=== PATIENT | female | born 1985 | race Caucasian/White ===

== ENCOUNTER 2023-05-27 10:18 | Emergency (ER) | payer SELFPAY ==
[2023-05-27] MEDS ORDERED: KETOROLAC 30 MG/ML INJ ONE (11:09)
[2023-05-27] MEDS ORDERED: ONDANSETRON 4 MG/2 ML VIAL ONE (11:09)
[2023-05-27] MEDS ORDERED: dexAMETHasone 10 MG/ML VIAL ONE (11:09)
[2023-05-27] MEDS ORDERED: MORPHINE 4 MG/ML SYR ONE (11:10)
[2023-05-27] MEDS ORDERED: DIAZEPAM 5 MG TABLET ONE (11:10)
[2023-05-27] MEDS ORDERED: NA CHLORIDE 0.9% 1,000 ML ONE (11:10)
[2023-05-27 11:35] LABS: Absolute Basophils 0.1 K/uL (0-0.5); Absolute Eosinophils 0.1 K/uL (0-0.5); Absolute Lymphocytes (CBC) 2.2 K/uL (0.7-4.9); Absolute Monocytes 0.6 K/uL (0.1-1.3); Absolute Neutrophil 6.1 K/uL (1.8-8.0); Basophils % 0.7 % (0-1.3); Eosinophils % 1.1 % (0-4.4); Hematocrit 42.7 % (36.0-45.0); Hemoglobin 14.5 g/dL (12.0-15.0); Lymphocytes % 24.2 % (15.3-44.8); MCH 32.5 pg (27.0-35.0); MCV 95.6 fL (80-100); MPV 8.4 fL (7.6-11.3); Monocytes % 6.1 % (3.3-12.3); Neutrophils % 67.9 % (41.7-73.7); Platelets 324 thou/uL (152-406); RBC Red Blood Cell Count 4.47 M/uL (3.86-4.86); Red Cell Distribution Width 13.1 % (12.1-15.2)
[2023-05-27 11:48] LABS: Urine Bacteria <20 /HPF (<20); Urine Bilirubin NEGATIVE (Negative); Urine Blood Negative (Negative); Urine Clarity Extremely Turbid (Clear); Urine Color Yellow (Yellow); Urine Culture Reflex Order NOT NEEDED; Urine Glucose NEGATIVE (Negative); Urine Ketones NEGATIVE (Negative); Urine Microscopic Reflex YN ORDER UMIC; Urine Mucus Slight /HPF (None Seen); Urine Nitrite NEGATIVE (Negative); Urine Protein NEGATIVE (Negative); Urine Urobilinogen Normal (Normal); Urine WBC <5 /HPF (<5)
--- NOTE | 2023-05-27 12:02 | RAD REPORT ---
EXAM DESCRIPTION: CT - Spine Lumbar Wo Con - 05/27/2023 11:49 am CLINICAL HISTORY: Radiculopathy. PAIN COMPARISON: <Comparisons> TECHNIQUE: Axial noncontrast CT imaging of the lumbar spine was performed with coronal and sagittal re-formatted images. All CT scans are performed using dose optimization technique as appropriate and may include automated exposure control or mA/KV adjustment according to patient size. FINDINGS: No acute lumbar spine fracture seen. No aggressive marrow pattern or malalignment. Paraspinal tissues are normal in thickness. No paraspinal abscess or hematoma seen. Prominent posterior disc bulging is present at L4-5 and L5-S1. There may be disc herniation at L4-5 t owards the left. IMPRESSION: No acute finding is seen. Mild lower lumbar degenerative changes detailed, with possible disc herniation L4-5 towards the left.
--- NOTE | 2023-05-27 12:04 | ER ---
Nurse's Notes [facility] Name: Rose Jacinto Age: 38 yrs Sex: Female : 1985 Arrival Date: 05/27/2023 Time: 10:18 Bed 12 Private MD: Diagnosis: Sciatica, left side;Sciatica;Low back pain;UTI/ Urinary tract infection, site not specified;Radiculopathy, lumbar region;Intervertebral disc disorders with radiculopathy, lumbar region-LEFT LUMBAR 4-5 DISC HERNIATION Presentation: 05/26 10:24 Chief complaint: Patient states: lower back pain x 3 days getting worse going down both ko1 legs. Coronavirus screen: At this time, the client does not indicate any symptoms associated with coronavirus-19. Ebola Screen: No symptoms or risks identified at this time. Initial Sepsis Screen: Does the patient meet any 2 criteria? No. Patient's initial sepsis screen is negative. Does the patient have a suspected source of infection? No. Patient's initial sepsis screen is negative. Risk Assessment: Do you want to hurt yourself or someone else? Patient reports no desire to harm self or others. Onset of symptoms is unknown. 10:24 Method Of Arrival: Ambulatory ko1 10:24 Acuity: RALPH 4 ko1 Triage Assessment: 10:26 General: Appears uncomfortable, Behavior is calm, cooperative, appropriate for age. ko1 Pain: Complains of pain in low back area. Musculoskeletal: Circulation, motion, and sensation intact. 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 - Social history:: Smoking status: Patient denies any tobacco usage or history of. - Family history:: not pertinent. Screenin:45 [facility] ED Fall Risk Assessment (Adult) History of falling in the last 3 months, ko1 including since admission No falls in past 3 months (0 pts) Confusion or Disorientation No (0 pts) Intoxicated or Sedated No (0 pts) Impaired Gait No (0 pts) Mobility Assist Device Used No (0 pt) Altered Elimination No (0 pt) Score/Fall Risk Level 0 - 2 = Low Risk Oriented to surroundings, Maintained a safe environment, Educated pt \T\ family on fall prevention, incl call for assistance when getting out of bed, Assessed \T\ reinforced patient's understanding of fall precautions, Provided non-skid footwear, Hourly rounding (assess needs \T\ fall precautionary measures) done, Used ambulatory aids as needed (educated on \T\ assisted with), Used gait belt as appropriate. Abuse screen: Denies threats or abuse. Denies injuries from another. Nutritional screening: No deficits noted. Tuberculosis screening: No symptoms or risk factors identified. Assessment: 10:45 Neuro: No deficits noted. Neuro: Kelly Agitation-Sedation Scale (RASS): 0 - Alert ko1 and Calm Level of Consciousness is awake, alert, obeys commands, Oriented to person, place, time, situation, Appropriate for age. Cardiovascular: No deficits noted. Respiratory: No deficits noted. GI: No deficits noted. : No deficits noted. EENT: No deficits noted. Derm: No deficits noted. Musculoskeletal: Reports pain in low back area and bilateral legs. 11:55 Reassessment: Patient is alert, oriented x 3, equal unlabored respirations, skin aa5 warm/dry/pink. Patient states feeling better. 12:53 Reassessment: Patient appears in no apparent distress at this time. fluids complete. iw 13:17 Reassessment: Patient appears in no apparent distress at this time. Patient and/or iw family updated on plan of care and expected duration. Pain level reassessed. Patient is alert, oriented x 3, equal unlabored respirations, skin warm/dry/pink. Patient states feeling better. Patient states symptoms have improved. Vital Signs: 10:24 BP 129 / 97; Pulse 92; Resp 17; Temp 97.1; Pulse Ox 100% ; ko1 11:55 BP 112 / 71; Pulse 89; Resp 18 S; Pulse Ox 96% on R/A; aa5 ED Course: 10:20 Patient arrived in ED. mr 10:26 Triage completed. ko1 10:26 Arm band placed on right wrist. Patient placed in an exam room, on a stretcher, on ko1 pulse oximetry, Patient notified of wait time. 10:35 Jean Pierre Trevizo MD is Attending Physician. [facility] 10:43 Maine Jackson, RN is Primary Nurse. ko1 10:45 Patient has correct armband on for positive identification. Bed in low position. Call ko1 light in reach. Side rails up X 1. Pulse ox on. NIBP on. Door closed. Noise minimized. 10:45 No provider procedures requiring assistance completed. ko1 11:14 Urinalysis w/ reflexes Sent. ko1 11:17 Assisted to bathroom. ko1 11:17 Urine collected: clean catch specimen, clear. ko1 11:47 CT Lumbar Spine Wo Con In Process Unspecified. EDMS 11:54 Urine Culture Sent. ds4 12:03 All Bridges MD is Referral Physician. sabrina 12:03 Shad Golden MD is Referral Physician. sabrina 12:46 Urine Culture Sent. ko1 13:17 Provided Education on: . iw 13:17 IV discontinued, intact, bleeding controlled, No redness/swelling at site. Pressure iw dressing applied. Administered Medications: 11:14 Drug: Diazepam PO 10 mg PO once Route: PO; ko1 11:38 Follow up: Response: No adverse reaction ko1 11:37 Drug: Decadron - Dexamethasone IVP 10 mg IVP once Route: IVP; Site: right antecubital; ko1 12:53 Follow up: Response: No adverse reaction iw 11:38 Drug: NS 0.9% IV 1000 ml IV at 1 bolus Per protocol; 1000 mL bolus Route: IV; Rate: 1 ko1 bolus; Site: right antecubital; 11:38 Drug: morphine IVP or IV 4 mg IVP once over 4 mins Route: IVP; Infused Over: 4 mins; ko1 Site: right antecubital; 12:53 Follow up: Response: No adverse reaction; Pain is decreased iw 11:38 Drug: Ondansetron IVP 4 mg IVP once; over 2 minutes Route: IVP; Site: right antecubital;ko1 11:38 Drug: Ketorolac IVP 30 mg IVP once Route: IVP; Site: right antecubital; ko1 12:09 Drug: Ciprofloxacin PO 500 mg PO once Route: PO; ko1 12:53 Follow up: Response: No adverse reaction iw Medication: 10:45 VIS not applicable for this client. ko1 Outcome: 12:04 Discharge ordered by . sabrina 13:17 Discharged to home ambulatory, with family, iw 13:17 Condition: good 13:17 Discharge instructions given to patient, family, Instructed on discharge instructions, follow up and referral plans. medication usage, Demonstrated understanding of instructions, follow-up care, medications, Prescriptions given X 4, 13:18 Patient left the ED. iw Signatures: Dispatcher [employer] [facility] Jean Pierre Trevizo MD MD cha Rivera, Nanette, Reg Reg mr Patricia Stokes RN RN iw Siria Parsons RN RN john5 Ismael Clifford 4 Maine Jackson RN RN ko1
--- NOTE | 2023-05-27 12:05 | EDPHYS ---
Physician Documentation [facility] Name: Rose Jacinto Age: 38 yrs Sex: Female : 1985 Arrival Date: 05/27/2023 Time: :18 Bed 12 Private MD: JOSEPHINE Physician Jean Pierre Trevizo HPI: 05/26 11:22 This 38 yrs old Female presents to ER via Ambulatory with complaints of Back sabrina Pain, Leg Pain. 11:22 The patient presents with pain that is acute, with no known mechanism of injury, and sabrina decreased range of motion. The symptoms are located in the low back. Onset: The symptoms/episode began/occurred 3 day(s) ago. The pain does not radiate. Associated signs and symptoms: The patient has no apparent associated signs or symptoms. The problem was sustained from unknown cause. Modifying factors: The patient symptoms are alleviated by nothing. The patient has not experienced similar symptoms in the past. 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 - Social history:: Smoking status: Patient denies any tobacco usage or history of. - Family history:: not pertinent. ROS: 11:22 Constitutional: Negative for fever, chills, and weight loss, Eyes: Negative for injury, sabrina pain, redness, and discharge, ENT: Negative for injury, pain, and discharge, Neck: Negative for injury, pain, and swelling, Cardiovascular: Negative for chest pain, palpitations, and edema, Respiratory: Negative for shortness of breath, cough, wheezing, and pleuritic chest pain, Abdomen/GI: Negative for abdominal pain, nausea, vomiting, diarrhea, and constipation, : Negative for injury, bleeding, discharge, and swelling, MS/Extremity: Negative for injury and deformity, Skin: Negative for injury, rash, and discoloration, Neuro: Negative for headache, weakness, numbness, tingling, and seizure, Psych: Negative for depression, anxiety, suicide ideation, homicidal ideation, and hallucinations, Allergy/Immunology: Negative for hives, rash, and allergies, Endocrine: Negative for neck swelling, polydipsia, polyuria, polyphagia, and marked weight changes, Hematologic/Lymphatic: Negative for swollen nodes, abnormal bleeding, and unusual bruising, 11:22 Back: Positive for injury or acute deformity, decreased range of motion, pain at rest, pain with movement, of the lumbar area and left low back, Exam: 11:22 Constitutional: This is a well developed, well nourished patient who is awake, alert, sabrina and in no acute distress. Head/Face: Normocephalic, atraumatic. Eyes: Pupils equal round and reactive to light, extra-ocular motions intact. Lids and lashes normal. Conjunctiva and sclera are non-icteric and not injected. Cornea within normal limits. Periorbital areas with no swelling, redness, or edema. ENT: Nares patent. No nasal discharge, no septal abnormalities noted. Tympanic membranes are normal and external auditory canals are clear. Oropharynx with no redness, swelling, or masses, exudates, or evidence of obstruction, uvula midline. Mucous membranes moist. Neck: Trachea midline, no thyromegaly or masses palpated, and no cervical lymphadenopathy. Supple, full range of motion without nuchal rigidity, or vertebral point tenderness. No Meningismus. Chest/axilla: Normal chest wall appearance and motion. Nontender with no deformity. No lesions are appreciated. Cardiovascular: Regular rate and rhythm with a normal S1 and S2. No gallops, murmurs, or rubs. Normal PMI, no JVD. No pulse deficits. Respiratory: Lungs have equal breath sounds bilaterally, clear to auscultation and percussion. No rales, rhonchi or wheezes noted. No increased work of breathing, no retractions or nasal flaring. Abdomen/GI: Soft, non-tender, with normal bowel sounds. No distension or tympany. No guarding or rebound. No evidence of tenderness throughout. Skin: Warm, dry with normal turgor. Normal color with no rashes, no lesions, and no evidence of cellulitis. MS/ Extremity: Pulses equal, no cyanosis. Neurovascular intact. Full, normal range of motion. Neuro: Awake and alert, GCS 15, oriented to person, place, time, and situation. Cranial nerves II-XII grossly intact. Motor strength 5/5 in all extremities. Sensory grossly intact. Cerebellar exam normal. Normal gait. Psych: Awake, alert, with orientation to person, place and time. Behavior, mood, and affect are within normal limits. 11:22 Back: pain, that is mild, that is moderate, ROM is normal, normal spinal alignment noted, CVA tenderness, is absent, muscle spasm, is not present, Straight leg raises: pain bilaterally, Vital Signs: 10:24 BP 129 / 97; Pulse 92; Resp 17; Temp 97.1; Pulse Ox 100% ; ko1 11:55 BP 112 / 71; Pulse 89; Resp 18 S; Pulse Ox 96% on R/A; aa5 MDM: 10:24 Patient medically screened. sabrina 10:35 Patient medically screened. sabrina 11:25 Differential diagnosis: chronic back pain, Fatigue Fracture Joint Injury Ligament sabrina Injury Obesity Osteoarthritis ruptured disc, Scoliosis spinal injury, sprain, Ureterolithiasis vertebral fracture. Data reviewed: vital signs, nurses notes, lab test result(s), radiologic studies, CT scan. Consideration of Admission/Observation Escalation of care including admission/observation considered. I considered the following discharge prescriptions or medication management in the emergency department Medications were administered in the Emergency Department. See MAR. Independent interpretation of the following test(s) in the Emergency Department. Test considered but Not performed: EKG: no ekg. Care significantly affected by the following chronic conditions: no hx. 05/26 10:56 Order name: CBC with Diff; Complete Time: 11:50 [facility] 05/26 10:56 Order name: Comprehensive Metabolic Panel [facility] 05/26 10:56 Order name: Urinalysis w/ reflexes; Complete Time: 11:50 [facility] 05/26 11:22 Order name: CT Lumbar Spine Wo Con; Complete Time: 12:02 [facility] 05/26 11:41 Order name: Labs - recollect needed: green top only; Complete Time: 11:54 aa5 Administered Medications: 11:14 Drug: Diazepam PO 10 mg PO once Route: PO; ko1 11:38 Follow up: Response: No adverse reaction ko1 11:37 Drug: Decadron - Dexamethasone IVP 10 mg IVP once Route: IVP; Site: right antecubital; ko1 12:53 Follow up: Response: No adverse reaction iw 11:38 Drug: NS 0.9% IV 1000 ml IV at 1 bolus Per protocol; 1000 mL bolus Route: IV; Rate: 1 ko1 bolus; Site: right antecubital; 11:38 Drug: morphine IVP or IV 4 mg IVP once over 4 mins Route: IVP; Infused Over: 4 mins; ko1 Site: right antecubital; 12:53 Follow up: Response: No adverse reaction; Pain is decreased iw 11:38 Drug: Ondansetron IVP 4 mg IVP once; over 2 minutes Route: IVP; Site: right antecubital;ko1 11:38 Drug: Ketorolac IVP 30 mg IVP once Route: IVP; Site: right antecubital; ko1 12:09 Drug: Ciprofloxacin PO 500 mg PO once Route: PO; ko1 12:53 Follow up: Response: No adverse reaction iw Disposition Summary: 05/27/23 12:04 Discharge Ordered Notes: Location: Home sabrina Problem: new sabrina Symptoms: have improved sabrina Condition: Stable sabrina Diagnosis - Sciatica, left side sabrina - Sciatica sabrina - Low back pain sabrina - UTI/ Urinary tract infection, site not specified sabrina - Radiculopathy, lumbar region sabrina - Intervertebral disc disorders with radiculopathy, lumbar region - LEFT LUMBAR 4-5 sabrina DISC HERNIATION Followup: sabrina - With: Private Physician - When: 2 - 3 days - Reason: Recheck today's complaints, Continuance of care, Re-evaluation by your physician Followup: sabrina - With: All Bridges MD - When: 2 - 3 days - Reason: Recheck today's complaints, Re-evaluation by your physician Followup: sabrina - With: Shad Golden MD - When: 2 - 3 days - Reason: Recheck today's complaints, Re-evaluation by your physician Discharge Instructions: - Discharge Summary Sheet sabrina - Acute Back Pain, Adult sabrina - Musculoskeletal Pain sabrina - Sciatica sabrina - Urinary Tract Infection, Adult sabrina - Urinary Tract Infection, Adult, Jelr-[id number] sabrina - Sciatica, [id number]-[id number] sabrina - Herniated Disk, Ymlc-[id number] sabrina - Radicular Pain sabrina Forms: - Medication Reconciliation Form sabrina - Thank You Letter sabrina - Antibiotic Education sabrina - Prescription Opioid Use sabrina - Patient Portal Instructions sabrina - Leadership Thank You Letter sabrina - Work release form iw Prescriptions: - acetaminophen-codeine 300-30 mg Oral tablet - take 2 tablet ORAL route every 6 hours; 20 tablet; Refills: 0, Product sabrina Selection Permitted - dexamethasone 4 mg Oral tablet - take 1 tablet ORAL route daily; 6 tablet; Refills: 0, Product Selection [facility] Permitted - Cipro 250 mg Oral tablet - take 1 tablet ORAL route every 12 hours; 14 tablet; Refills: 0, Product sabrina Selection Permitted - Diclofenac Sodium 75 mg Oral Tablet Sustained Release - take 1 tablet ORAL route 2 times per day; 30 tablet; Refills: 0, Product sabrina Selection Permitted - Cyclobenzaprine 5 mg Oral tablet - take 1 tablet ORAL route 3 times per day As needed; 21 tablet; Refills: 0, [facility] Product Selection Permitted Signatures: Dispatcher [employer] Jean Pierre Sanchez MD MD cha Calderon, Audri RN RN aa5 Maine Jackson RN RN ko1 Patricia Stokes RN iw
[2023-05-27] MEDS ORDERED: CIPROFLOXACIN HCL 500 MG TAB ONE (12:07)
[2023-05-27 12:23] LABS: Albumin 3.6 g/dL (3.4-5.0); Albumin/Globulin Ratio 0.9 (1.1-1.8); Anion Gap 7.3 mEq/L (5.0-15.0); Bilirubin Total 0.4 mg/dL (0.2-1.0); Globulin 4.2 g/dL (2.3-3.5); Potassium 4.3 mEq/L (3.5-5.1); Protein, Total 7.8 g/dL (6.4-8.2)
[2023-05-27 13:48] VITALS: BP 112/71; TEMP 97.1; O2SAT 96
== END 2023-05-27 13:18 | disposition home or self-care (01) ==
LOC: ER 10:18
DX: M54.32 Sciatica, left side (principal); N39.0 Urinary tract infection, site not specified; M54.16 Radiculopathy, lumbar region; M51.26 Other intervertebral disc displacement, lumbar region
CPT/HCPCS: 36415; 72131; 80053; 81001; 85025; 96374; 96375; 99284; J1100; J2405; J7030

== ENCOUNTER 2024-05-22 21:50 | Emergency (ER) | payer SELFPAY ==
[2024-05-22] MEDS ORDERED: HYDROCODONE/CHLORPHEN 5 ML/OSYR ONE (22:48)
[2024-05-22 22:51] LABS: Absolute Basophils 0.1 K/uL (0-0.5); Absolute Eosinophils 0.5 K/uL (0-0.5); Absolute Lymphocytes (CBC) 2.6 K/uL (0.7-4.9); Absolute Monocytes 0.8 K/uL (0.1-1.3); Absolute Neutrophil 7.5 K/uL (1.8-8.0); Basophils % 0.8 % (0-1.3); Eosinophils % 4.5 % (0-4.4); Hematocrit 38.8 % (36.0-45.0); Hemoglobin 13.3 g/dL (12.0-15.0); Lymphocytes % 22.5 % (15.3-44.8); MCH 32.9 pg (27.0-35.0); MCHC 34.2 g/dL (32.0-36.0); MCV 96.3 fL (80-100); MPV 7.8 fL (7.6-11.3); Monocytes % 6.6 % (3.3-12.3); Neutrophils % 65.6 % (41.7-73.7); Platelets 379 thou/uL (152-406); RBC Red Blood Cell Count 4.03 M/uL (3.86-4.86); Red Cell Distribution Width 12.9 % (12.1-15.2)
[2024-05-22 23:04] LABS: Anion Gap 10.6 mEq/L (5.0-15.0); Potassium 3.6 mEq/L (3.5-5.1)
[2024-05-22] MEDS ORDERED: ALBUTEROL 2.5 MG/3 ML NEB SOL ONE (23:47)
[2024-05-22] MEDS ORDERED: METHYLPREDNISOLONE 40 MG INJ ONE (23:47)
[2024-05-22] MEDS ORDERED: NA CHLORIDE 0.9% 1,000 ML ONE (23:48)
--- NOTE | 2024-05-23 00:51 | EDPHYS ---
Physician Documentation [facility] Name: Rose Jacinto Age: 39 yrs Sex: Female : 1985 Arrival Date: 05/22/2024 Time: 21:50 Bed 15 Private MD: ED Physician Yosef Machado HPI: 05/22 23:35 This 39 yrs old Female presents to ER via Ambulatory with complaints of Painful Cough, sb4 Numbness - of feet, Foot Pain, Congestion. 23:39 Patient reports cough and congestion x 2 weeks. States that she thought it was just a sb4 cold but the cough has persisted. States that it is productive and now she has a pain in the center of her chest. Additionally, she states that she has had a numbness/tingling sensation in her feet and feels like [id number] when she walks. 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 - Infectious Disease History:: Denies. - Social history:: Smoking status: Reported history of juuling and/or vaping. ROS: 23:39 Constitutional: Negative for fever, chills, and weight loss, sb4 23:40 Cardiovascular: Positive for chest pain, sb4 23:40 Respiratory: Positive for cough, shortness of breath, 23:40 Neuro: Positive for tingling, of the right foot and left foot, sb4 23:40 All other systems are negative, Exam: 23:40 Constitutional: This is a well developed, well nourished patient who is awake, alert, sb4 and in no acute distress. Head/Face: Normocephalic, atraumatic. Eyes: Extra-ocular motions intact. Periorbital areas with no swelling, redness, or edema. ENT: Mucous membranes moist. Cardiovascular: Regular rate and rhythm with a normal S1 and S2. Respiratory: No increased work of breathing, no retractions or nasal flaring. Abdomen/GI: Soft, non-tender, no distension. Skin: Warm, dry with normal turgor. Normal color with no rashes, no lesions, and no evidence of cellulitis. 23:40 Respiratory: Breath sounds: are clear throughout, Vital Signs: 22:11 BP 152 / 109; Pulse 99; Resp 18; Temp 97.1(O); Pulse Ox 100% ; Weight 108.86 kg; Height br2 5 ft. 5 in. ; Pain 6/10; 22:45 BP 121 / 88; Pulse 93; Resp 18; Pulse Ox 98% on R/A; rg5 23:45 BP 126 / 78; Pulse 97; Resp 18; Pulse Ox 97% on R/A; rg5 22:11 Body Mass Index 39.94 (108.86 kg, 165.1 cm) br2 22:11 Pain Scale: Adult br2 MDM: 22:17 Medical Screening Exam initiated sb4 05/23 00:50 Data reviewed: vital signs, nurses notes, lab test result(s), radiologic studies, and sb4 as a result, I will discharge patient. Counseling: I had a detailed discussion with the patient and/or guardian regarding the historical points, exam findings, and any diagnostic results supporting the discharge/admit diagnosis, lab results, radiology results, the need for outpatient follow up, for definitive care, to return to the emergency department if symptoms worsen or persist or if there are any questions or concerns that arise at home. 05/22 22:31 Order name: CBC with Diff; Complete Time: 22:56 sb4 05/22 22:31 Order name: BMP; Complete Time: 23:09 sb4 05/22 23:31 Order name: Troponin High Sensitivity; Complete Time: 01:06 sb4 05/22 22:31 Order name: Chest Pa And Lat (2 Views) XRAY sb4 05/22 23:30 Order name: Extrem Venous W Compression Moise US sb4 05/22 22:31 Order name: IV Start; Complete Time: 22:44 sb4 Administered Medications: 05/22 22:50 Drug: Tussionex Pennkinetic ER PO Suspension 5 ml PO once Route: PO; rg5 23:21 Follow up: Response: No adverse reaction rg5 05/23 00:00 Drug: NS 0.9% IV 1000 ml IV at 1000 ml once; to be given as a bolus over 60 minutes rg5 Route: IV; Rate: 1000 ml; Site: right antecubital; 00:43 Follow up: IV Status: Completed infusion; IV Intake: 1000ml rg5 00:00 Drug: Albuterol Inhalation 2.5 mg Inhalation once Route: Inhalation; rg5 00:00 Drug: MethylPrednisoLONE IVP 60 mg IVP once Route: IVP; Site: right antecubital; rg5 00:32 Follow up: Response: No adverse reaction rg5 00:50 Drug: Rocephin IV 1 grams IV at calculated rate once; Given slow IV push per pharmacy rg5 instructions Route: IV; Rate: calculated rate; Site: right antecubital; 01:05 Follow up: IV Status: Completed infusion; IV Intake: 20ml rg5 00:50 Drug: Ketorolac IVP 15 mg IVP once Route: IVP; Site: right antecubital; rg5 01:05 Follow up: Response: No adverse reaction; Pain is decreased rg5 Disposition: 02:05 Co-signature as Attending Physician, Yosef Machado MD I agree with the assessment sp4 and plan of care. I reviewed the patient's care provided by the Advanced Practice Provider and agree with the diagnosis and treatment plan. Disposition Summary: 05/23/24 00:50 Discharge Ordered Notes: Location: Home sb4 Problem: new sb4 Symptoms: have improved sb4 Condition: Stable sb4 Diagnosis - Cough sb4 - Chest pain, unspecified sb4 Followup: sb4 - With: Emergency Department - When: As needed - Reason: Trouble breathing, Worsening of condition Discharge Instructions: - Discharge Summary Sheet sb4 - Acute Bronchitis, Adult, Vjee-ej-Gwcu sb4 - Nonspecific Chest Pain, Adult, [id number]-[id number] sb4 Forms: - Antibiotic Education sb4 - Patient Portal Instructions sb4 - Leadership Thank You Letter sb4 Prescriptions: - albuterol sulfate 90 mcg/actuation Inhalation HFA Aerosol Inhaler - inhale 2 puff INHALATION route every 6 hours PRN wheezing/shortness of breath; sb4 1 Applicator; Refills: 0, Product Selection Permitted - Prednisone 20 mg Oral Tablet - take 1 tablet ORAL route once daily for 5 days; 5 tablet; Refills: 0, Product sb4 Selection Permitted - Zithromax Z-Prince 250 mg Oral Tablet - take 1 tablet ORAL route as directed for 5 days Day 1 - take two (2) tablets sb4 one time. Day 2, 3, 4 , 5 take one (1) tablet once daily.; 6 tablet; Refills: 0, Product Selection Permitted - Guaifenesin AC 10-100 mg/5 mL Oral Liquid - take 10 milliliters ORAL route every 4 hours As needed; 240 milliliter; sb4 Refills: 0, Product Selection Permitted Signatures: Dispatcher [employer] Nelda Case, FLAQUITO HUDDLESTON sb4 Yosef Machado MD MD sp4 Ty Mcintyre RN RN rg5 Michelle Yin RN RN br2
--- NOTE | 2024-05-23 00:51 | ER ---
Nurse's Notes [facility] Name: Rose Jacinto Age: 39 yrs Sex: Female : 1985 Arrival Date: 05/22/2024 Time: 21:50 Bed 15 Private MD: Diagnosis: Cough;Chest pain, unspecified Presentation: 05/22 22:10 Acuity: RALPH 3 rg5 22:11 Chief complaint: Patient states: COUGH 2-3 DAYS, DRY, CP WITH COUGH FLS FOR THE LAST 2 br2 WEEKS. C/O TINGLING AND NUMBESS TO BILATERAL FEET. Coronavirus screen: Client denies travel out of the [place] in the last 14 days. Ebola Screen: Patient denies exposure to infectious person. Initial Sepsis Screen: Does the patient meet any 2 criteria? No. Patient's initial sepsis screen is negative. Does the patient have a suspected source of infection? No. Patient's initial sepsis screen is negative. Risk Assessment: Do you want to hurt yourself or someone else? Patient reports no desire to harm self or others. Onset of symptoms is unknown. 22:11 Method Of Arrival: Ambulatory br2 Triage Assessment: 22:16 General: Appears in no apparent distress. uncomfortable, Behavior is calm, cooperative. br2 Pain: Complains of pain in mid-sternal area Pain currently is 6 out of 10 on a pain scale. Respiratory: Airway is patent Respiratory effort is even, labored, Respiratory pattern is regular, symmetrical. RESOLUTION MANAGER: 22:45 LMP N/A - control method, Not rg5 Historical: - Allergies: 22:16 No Known Allergies; br2 - PMHx: 22:16 Migraines; br2 - Immunization history:: Adult Immunizations not up to date. - Infectious Disease History:: Denies. - Social history:: Smoking status: Reported history of juuling and/or vaping. Screenin:40 [facility] ED Fall Risk Assessment (Adult) History of falling in the last 3 months, rg5 including since admission No falls in past 3 months (0 pts) Confusion or Disorientation No (0 pts) Intoxicated or Sedated No (0 pts) Impaired Gait No (0 pts) Mobility Assist Device Used No (0 pt) Altered Elimination No (0 pt) Score/Fall Risk Level 0 - 2 = Low Risk Oriented to surroundings, Maintained a safe environment, Hourly rounding (assess needs \T\ fall precautionary measures) done. Abuse screen: Denies threats or abuse. Nutritional screening: No deficits noted. Tuberculosis screening: No symptoms or risk factors identified. Assessment: 22:40 General: Appears in no apparent distress. Behavior is calm, cooperative. Pain: rg5 Complains of pain in chest Quality of pain is described as dull. Neuro: Level of Consciousness is awake, alert, obeys commands, Oriented to person, place, time, situation. Cardiovascular: Patient's skin is warm and dry. Respiratory: Reports shortness of breath cough that is pain with cough Airway is patent Trachea midline Respiratory effort is even, unlabored, Respiratory pattern is regular, symmetrical, Breath sounds are clear. GI: Abdomen is round non-distended, Abd is soft and non tender. : No signs and/or symptoms were reported regarding the genitourinary system. EENT: No deficits noted. Derm: Skin is intact, Skin is dry, Skin is normal, Skin temperature is warm. Musculoskeletal: Circulation, motion, and sensation intact. Range of motion: intact in all extremities. 23:44 Reassessment: No changes from previously documented assessment. Patient and/or family rg5 updated on plan of care and expected duration. Pain level reassessed. Patient is alert, oriented x 3, equal unlabored respirations, skin warm/dry/pink. 05/23 00:32 Reassessment: No changes from previously documented assessment. Patient and/or family rg5 updated on plan of care and expected duration. Pain level reassessed. Patient is alert, oriented x 3, equal unlabored respirations, skin warm/dry/pink. Vital Signs: 05/22 22:11 BP 152 / 109; Pulse 99; Resp 18; Temp 97.1(O); Pulse Ox 100% ; Weight 108.86 kg; Height br2 5 ft. 5 in. ; Pain 6/10; 22:45 BP 121 / 88; Pulse 93; Resp 18; Pulse Ox 98% on R/A; rg5 23:45 BP 126 / 78; Pulse 97; Resp 18; Pulse Ox 97% on R/A; rg5 22:11 Body Mass Index 39.94 (108.86 kg, 165.1 cm) br2 22:11 Pain Scale: Adult br2 ED Course: 21:56 Patient arrived in ED. im 22:17 [facility] sb[facility] 22:17 Yosef Machado MD is Attending Physician. sb4 22:21 Ty Mcintyre, ANAHY is Primary Nurse. rg5 22:40 Patient has correct armband on for positive identification. Bed in low position. Call rg5 light in reach. Side rails up X 1. Door closed. Noise minimized. 22:40 No provider procedures requiring assistance completed. Inserted saline lock: 20 gauge rg5 in right antecubital area, using aseptic technique. Blood collected. Flushed with 10 mL NS. 22:45 Arm band placed on. rg5 22:51 Chest Pa And Lat (2 Views) XRAY In Process Unspecified. EDMS 05/23 00:08 Extrem Venous W Compression Moise US In Process Unspecified. EDMS 01:04 Provided Education on: post er care. rg5 01:04 IV discontinued, bleeding controlled, No redness/swelling at site. Pressure dressing rg5 applied. 01:05 Triage completed. rg5 Administered Medications: 05/22 22:50 Drug: Tussionex Pennkinetic ER PO Suspension 5 ml PO once Route: PO; rg5 23:21 Follow up: Response: No adverse reaction rg5 05/23 00:00 Drug: NS 0.9% IV 1000 ml IV at 1000 ml once; to be given as a bolus over 60 minutes rg5 Route: IV; Rate: 1000 ml; Site: right antecubital; 00:43 Follow up: IV Status: Completed infusion; IV Intake: 1000ml rg5 00:00 Drug: Albuterol Inhalation 2.5 mg Inhalation once Route: Inhalation; rg5 00:00 Drug: MethylPrednisoLONE IVP 60 mg IVP once Route: IVP; Site: right antecubital; rg5 00:32 Follow up: Response: No adverse reaction rg5 00:50 Drug: Rocephin IV 1 grams IV at calculated rate once; Given slow IV push per pharmacy rg5 instructions Route: IV; Rate: calculated rate; Site: right antecubital; 01:05 Follow up: IV Status: Completed infusion; IV Intake: 20ml rg5 00:50 Drug: Ketorolac IVP 15 mg IVP once Route: IVP; Site: right antecubital; rg5 01:05 Follow up: Response: No adverse reaction; Pain is decreased rg5 Medication: 05/22 22:40 VIS not applicable for this client. rg5 Intake: 05/23 00:43 IV: 1000ml; Total: 1000ml. rg5 01:05 IV: 20ml; Total: 1020ml. rg5 Outcome: 00:50 Discharge ordered by . sb4 01:05 Discharged to home ambulatory, rg5 01:05 Condition: stable 01:05 Discharge instructions given to patient, Instructed on discharge instructions, follow up and referral plans. Demonstrated understanding of instructions, follow-up care, medications, Prescriptions given X 4, 01:06 Patient left the ED. rg5 Signatures: Dispatcher [employer] EDMS Nelda Teran PA-C PA-C sb4 Imelda Lovell Rommel, RN RN rg5 Michelle Yin RN RN br2
[2024-05-23] MEDS ORDERED: CEFTRIAXONE 1000 MG/VIAL ONE (00:52)
[2024-05-23] MEDS ORDERED: KETOROLAC 30 MG/ML INJ ONE (00:52)
--- NOTE | 2024-05-23 01:05 | RAD REPORT ---
ROCEDURE: US BILATERAL LOWER EXTREMITY VENOUS DUPLEX DOPPLER TECHNIQUE: Duplex Doppler ultrasound of the BILATERAL common and superficial femoral, popliteal, po sterior tibial and proximal deep femoral and greater saphenous veins was attempted. Umanzor scale imaging with and without compression, spectral waveform analysis with and without augmentation, and c olor flow Doppler were employed. HISTORY: , , NUMBNESS/TINGLING, Bed Name: 15 COMPARISONS: None FINDINGS: RIGHT LOWER EXTREMITY: Deep Venous Thrombus: None . Superficial Venous Thrombus: None . Venous valvular incompetence: None . Soft tissue abnormality: None . Other: None . LEFT LOWER EXTREMITY: Deep Venous Thrombus: None . Superficial Venous Thrombus: None . Venous valvular incompetence: None . Soft tissue abnormality: None . Other: None . IMPRESSION: No evidence of deep venous thrombosis in the lower extremities bilaterally. Electronically signed by: Dov Mclaughlin MD 05/23/2024 12:30 AM CDT RP [id number] Due to temporary technical issues with the PACS/[employer] reporting system, reports are being signed by the in-house radiologist without review as a courtesy to ensure prompt reporting the interpreting radiologist is fully responsible for the content of the report. Transcribed Date/Time: 05/23/2024 1:05 AM
[2024-05-23 01:19] VITALS: TEMP 97.1
[2024-05-23 01:28] VITALS: BP 126/78; O2SAT 97
--- NOTE | 2024-05-23 05:52 | RAD REPORT ---
CLINICAL HISTORY: Chest pain, cough, congestion. COMPARISON: None. TECHNIQUE: XR CHEST 2 VIEWS 05/22/2024 10:31 PM CDT FINDINGS: Cardiac silhouette is normal in size. Lungs are clear without consolidation, atelectasis, mass or denia ma. There is no pleural effusion. There is no pneumothorax. There are no acute osseous findings. IMPRESSION: Clear lungs. Electronically signed by: Wolfgang Savage MD 05/22/2024 11:17 PM CDT RP Du e to temporary technical issues with the PACS/[employer] reporting system, reports are being signed by the in-house radiologist without review as a courtesy to ensure prompt reporting the [facility] radiologist is fully responsible for the content of the report. Transcribed Date/Time: 05/23/2024 5:51 AM
== END 2024-05-23 01:06 | disposition home or self-care (01) ==
LOC: ER 21:50
DX: R05.9 Cough, unspecified (principal); R07.9 Chest pain, unspecified; R20.0 Anesthesia of skin
CPT/HCPCS: 36415; 71046; 80048; 84484; 85025; 93970; J0696; J2919; J7030; J7613